=== PATIENT | female | born 1950 | race Caucasian/White ===

== ENCOUNTER 2023-05-11 10:11 | Emergency (ER) | payer BC, OTHER ==
[~2023-05-11] VITALS: Ht 170.2 cm; Wt 68.0 kg
[2023-05-11 10:57] VITALS: BP 154/73; PULSE 76; RESP 18; TEMP 98; O2SAT 98
[2023-05-11] MEDS ORDERED: AUG875T PO (11:03)
== END 2023-05-11 11:06 | disposition home or self-care (01) ==
LOC: ER 10:11
DX: H11.32 Conjunctival hemorrhage, left eye (principal); H65.02 Acute serous otitis media, left ear